=== PATIENT | male | born 1985 | race Hispanic/Latino ===

== ENCOUNTER 2017-02-13 18:09 | Emergency (ER) | payer OTHER ==
[~2017-02-13] VITALS: Ht 154.9 cm; Wt 75.0 kg
[2017-02-13 18:16] VITALS: BP 160/105; PULSE 144; RESP 20; O2SAT 99
[2017-02-13 18:25] VITALS: BP 148/98; PULSE 134; RESP 23; O2SAT 100
[2017-02-13] MEDS ORDERED: Diltiazem 5 mg/mL 5 mL Inj IVPUSH ONE (18:25)
[2017-02-13] MEDS ORDERED: Diltiazem 5 mg/mL 5 mL Inj ONE (18:25)
--- NOTE | 2017-02-13 18:35 | ED.REPORT ---
HPI-Chest Pain Under 40 Date of Service Feb 13, 2017 ED Provider: Vic Meeks MD The pt is a 31 y/o male w/ a hx of diabetes presenting to the ED due to chest pain onset 1 hour ago. The pt is also experiencing a rapid heartbeat, numbness in his hands and feet, generalized muscle cramps, and SOB. 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 He also reports recent cocaine use. The pt last had a similar episode to this 3 months ago. Nursing Notes Stated Complaint: SHORTNESS OF BREATH, DIZZY, CRAMPING Chief Complaint: Chest pain Nursing Notes Reviewed: Yes ([place] Data, judge.mes not reconciled) Allergies: Coded Allergies: No Known Allergies (Unverified , 02/13/17) General Time Seen by MD: 18:17 Chief Complaint Chest pain Hx Obtained From: Patient Arrived By: Walk-in Sudden in Onset?: Yes Onset Occurred: 1 - 4 hours ago Symptom Duration: Since onset Recent Healthcare: No recent doctor visit, No recent hospitalization Similar Sx Previous: Yes Past Medical History Past Medical History Diabetes - Controlled w/ "pills" Past Surgical History None reported Smoking History Never Smoker Social History Drug Use: Cocaine Ambulatory Status Independent Review of Systems + Rapid heartbeat; +Generalized muscle cramps; Constitutional: Reports: Fatigue Respiratory: Reports: Shortness of breath Cardiovascular: Reports: Chest pain Neurologic: Reports: Numbness (in hands and feet ) Complete sys rev & neg: except as marked. Physical Exam Initial Vital Signs Vital Signs (First) Date Time Temp Pulse Resp B/P Pulse Ox O2 Delivery O2 Flow Rate FiO2 02/13/17 18:16 36.1 144 20 160/105 99 Room Air Initial VS: Reviewed, Vital signs abnormal General/Constitutional: Awake, Alert Extremely anxious; Pt is clutching his chest; Respiratory / Chest: Atraumatic, Breath sounds NL, Breath sounds = bilat Positive Bullock's sign; Mild carpopedal spasms w/ the hyperventilation; Cardiovascular: Regular rhythm, Heart sounds NL Heart Rate / Rhythm: Positive: Tachycardia No edema; Neck: Supple, Full range of motion, No JVD Abdomen: Atraumatic, Soft, Non-tender Back: Atraumatic, Full range of motion Skin: Atraumatic, Color NL, No rash, Warm, Dry Neurologic: Oriented X3, Speech NL Head / Eyes: Normocephalic Pupils are dilated; Interpretation & Diagnostics Lab Results Interpretation Result Diagram: 02/13/17 1839 02/13/17 1839 Test 02/13/17 18:39 White Blood Count 11.3th/mm3 (3.8-10.1) Red Blood Count 5.89mil/mm3 (4.40-5.80) Hemoglobin 17.5g/dL (13.8-17.2) Hematocrit 49.6% (41.0-50.0) Mean Corpuscular Volume 84.2fL (81-100) Mean Corpuscular Hemoglobin 29.7pg (27.0-35.0) Mean Corpuscular Hemoglobin Concent 35.3% (32.0-37.0) Red Cell Distribution Width 12.3% (12.3-15.4) Platelet Count 353bil/L (150-400) Neutrophils (%) (Auto) 71.2% (40-74) Lymphocytes (%) (Auto) 19.1% (14-46) Monocytes (%) (Auto) 8.6% (4-12) Eosinophils (%) (Auto) 0.4% (0-5) Basophils (%) (Auto) 0.5% (0-3) Sodium Level 137mEq/L (134-144) Potassium Level 3.9mEq/L (3.5-5.2) Chloride Level 95mEq/L (97-108) Carbon Dioxide Level 19mmol/L (18-29) Blood Urea Nitrogen 11mg/dL (6-20) Creatinine 0.79mg/dL (0.76-1.27) Estimat Glomerular Filtration Rate 122mL/min (>59) Glucose Level 194mg/dL (60-99) Calcium Level 10.0mg/dL (8.5-10.1) Total Bilirubin 1.5mg/dL (0.0-1.2) Aspartate Amino Transf (AST/SGOT) 19U/L (0-50) Alanine Aminotransferase (ALT/SGPT) 23U/L (0-44) Alkaline Phosphatase 63U/L (25-150) Total Protein 8.7g/dL (6.4-8.4) Albumin 5.1g/dL (3.4-5.0) Thyroid Stimulating Hormone (TSH) 10.830uIU/mL (0.450-4.500) Hold Estrada Top Tube Received (Received) Lab Results Interpretation: CBC trace leukocytosis CMP normal TSH elevated consistent with mild hypothyroidism ECG Interpretation ECG Interpretation: Your complex tachycardia consistent with SVT at a rate of 144, no delta waves, or findings of a preexcitation syndrome or evident, no prior EKGs available for comparison Time: 18:20 Interpreted by: ED physician ECG Interpretation: Rate 106 Sinus tachycardia SVT is resolved No ischemic changes Time: 18:52 Interpreted by: ED physician Re-Eval/Medical Decision Med Decision/Clinical Course This is a 31-year-old male presents with sudden onset of chest pain, shortness breath, palpitations this evening. He arrives clutching his chest, extremely anxious, with a heart rate 150, narrow complex concerning for SVT on the monitor. Reports a brief episode somewhat similar symptoms although not as severe couple months ago but never saw a provider. He denies any prior cardiac or pulmonary history. In any stigma use, but later admits to doing cocaine last night. On exam he is anxious, is a narrow complex tachycardia consistent with SVT on the monitor, but is normotensive. Heart tones are normal. He has no edema, JVD or clinical exam findings of a DVT/ PE. A modified Valsalva maneuvers tried at the bedside, without effect. IV is placed and received a dose of diltiazem and atazanavir with resolution of symptoms and resolution of SVT. Labs are obtained were normal except for mildly elevated TSH patients advised the follow-up with his PCP for the mild hypothyroidism. He is advised to stay away from stimulants. Routine and return precautions reviewed. Patient's discharge in improved condition. Source of Hx: Old records Re-Evaluation/Progress #1: Time of Eval: 18:44 Re-Evaluation/Progress Note: Pt rechecked and is feeling better; Re-Evaluation/Progress #2: Time of Eval: 19:50 Re-Evaluation/Progress Note: Pt rechecked. F/U instructions and RTER warnings given. All questions addressed. Differential Diagnosis: Positive: Dysrhythmia, Negative: Acute coronary syndrome, Acute myocardial infarct, Pneumomediastinum (SVT), Pneumonia, Pulmonary edema, Pulmonary embolism, Rib fracture, Stab wound chest, Stable angina, Unstable angina Counseled Regarding: Diagnosis, Lab results, Need for follow-up, When/why to return to ED Discharge & Departure Primary Impression: Supraventricular tachycardia Additional Impressions: Hypothyroid Hypothyroidism type: unspecified Qualified Code: E03.9 - Hypothyroidism, unspecified Cocaine abuse Disposition: Home Discharge Condition All VS Reviewed: Yes Condition: Stable Additional Instructions: 1. You had an episode of what is referred to his SVT, which is very rapid heart rate that causes the symptoms. This was treated with medication, and the condition has resolved. Please note that cocaine and stimulant use makes it easier for this SVT to occur. (Stay away from drugs and stimulants) 2. This is a condition that can recur over the years from time to time. (If occurring very frequently, sometimes a motorcycle racer can perform the procedure called an ablation) 3. Activities and diet as tolerated. 4. Return if new or worsening symptoms. 5. Your blood tests were normal except for a mildly low thyroid - follow up with Dr. Proctor. Google Translate 1. Usted tuvo un episodio de lo que se refiere a chavez SVT, que es la frecuencia cardaca muy rpida que causa los sntomas. [place] fue tratado con la medicacin, y la condicin sena resuelto. Tenga en cuenta que la cocana y el uso de estimulantes hace que sea ms fcil para navneet SVT. (Mantngase alejado de las drogas y estimulantes) 2. Esta es natalee condicin que puede repetirse en los aos de vez en cuando. (Si ocurre con kunal frecuencia, a veces un cardilogo puede realizar el procedimiento llamado ablacin) 3. Actividades y dieta segn lo tolerado. 4. Devuelva si hay sntomas nuevos o que empeoran. 5. Marley exmenes de kel fueron normales a excepcin de natalee tiroides ligeramente baja - seguimiento con el Dr. Proctor. Referrals: Monster Proctor MD Scribe Attestation Portions of this note were transcribed by Christophe Michael. I, Dr. Meeks personally performed the history, physical exam and medical decision-making; I reviewed and confirmed the accuracy of the information in the transcribed note. copies to: Monster Proctor MD, Matthew F MD Feb 13, 2017 18:35 Christophe Michael Feb 13, 2017 18:56
[2017-02-13 18:38] VITALS: BP 136/76; PULSE 113
[2017-02-13 18:44] LABS: BASOPHILS % (AUTO) 0.5 % (0-3); EOSINOPHILS % (AUTO) 0.4 % (0-5); MONOCYTES % (AUTO) 8.6 % (4-12); Mean Corpuscular Hemoglobin 29.7 pg (27.0-35.0); Mean Corpuscular Volume 84.2 fL (81-100); NEUTROPHILS % (AUTO) 71.2 % (40-74); Platelet Count 353 bil/L (150-400)
[2017-02-13 18:49] VITALS: PULSE 105
[2017-02-13 20:06] VITALS: BP 11/57; PULSE 104; RESP 27; O2SAT 97
== END 2017-02-13 20:20 | disposition home or self-care (01) ==
LOC: SED 18:09
DX: I47.1 Supraventricular tachycardia (principal); E03.9 Hypothyroidism, unspecified; F14.10 Cocaine abuse, uncomplicated; R53.83 Other fatigue; E11.9 Type 2 diabetes mellitus without complications
CPT/HCPCS: 36415; 80053; 82948; 84443; 85025; 93005; 96374; 96375; 99284; J2060